=== PATIENT | female | born 1970 | race Caucasian/White ===

== ENCOUNTER 2016-05-20 07:47 | Day surgery (SDC) | payer BC ==
[~2016-05-20 07:47] MED LIST: ATROPINE SULFATE 0.4 MG/1 ML VIAL IVP PRN; BUPIVACAINE 0.25% W/ EPI - 10 ML VIAL ONE; LIDOCAINE HCL 2 % 10 ML JELLY URO-JECT TOPICAL ONE; LIDOCAINE W/ SODIUM BICARB 0.5 ML SYR ONE; Lactated Ringers 1,000 ML PRIMARY IV SCH; Lactated Ringers 2,000 ML PRIMARY IV ONE; NORMAL SALINE 10 ML SYRINGE FLUSH IVP PRN; ONDANSETRON 4 MG/2 ML VIAL IVP PRN; Ondansetron ODT Tab 8 MG TAB PO PRN; Opium-Belladonna 60-16.2mg 1 EACH SUPP.RECT RECTAL ONE; Prochlorperazine Edisylate Inj 10mg/2ml vial IVP PRN; SCOPOLAMINE HYDROBROMIDE 1.5 MG - 1 EACH PATCH TRANSDERM ONE; Sodium Chloride 0.9% 100 ML IV ONE; fentaNYL Inj 100 MCG/2 ML VIAL IVP PRN
[2016-05-20] MEDS ORDERED: Acetaminophen 1000mg Inj 100 ML IV ONE (07:59)
[2016-05-20] MEDS ORDERED: SCOPOLAMINE HYDROBROMIDE 1.5 MG - 1 EACH PATCH TRANSDERM ONE (07:59)
[2016-05-20 08:00] LABS: BILIRUBIN,URINE NEGATIVE (NEG); CLARITY,URINE CLEAR (CLEAR); GLUCOSE, URINE (UA) NEGATIVE (NEG); LEUKOCYTE ESTERASE ,URINE NEGATIVE (NEG); NITRATE,URINE NEGATIVE (NEG); OCCULT BLOOD,URINE Trace-intact (NEG); PH,URINE 5.5 (5.0-8.5); PROTEIN,URINE NEGATIVE (NEG); UROBILINOGEN,URINE 0.2 mg/dL (0.2)
[2016-05-20 08:03] LABS: URINE SAMPLE TYPE CLEAN CATCH URINE; WBC,URINE 0-1
[2016-05-20 08:04] LABS: BACTERIA,URINE FEW; SQUAMOUS EPITHELIAL CELL,UR MODERATE
[2016-05-20 08:25] LABS: HEMATOCRIT 37.9 % (37.0-47.0); HEMOGLOBIN 12.6 g/dL (12.0-16.0)
[2016-05-20] MEDS ORDERED: KETAMINE 100 MG/1 ML - 5 ML ONE (09:39)
[2016-05-20] MEDS ORDERED: SUFENTANIL 50 MCG/1 ML ONE (09:39)
[2016-05-20] MEDS ORDERED: MIDAZOLAM 5 MG/1 ML ONE (09:39)
[2016-05-20] MEDS ORDERED: LIDOCAINE MPF 2% - 5 ML (20 MG/1 ML) ONE ×2 (09:40→11:54)
[2016-05-20] MEDS ORDERED: Sodium Chloride 0.9% vial 10 ML ONE ×2 (09:40→09:46)
[2016-05-20] MEDS ORDERED: VECURONIUM BROMIDE 10 MG VIAL ONE (09:45)
[2016-05-20] MEDS ORDERED: Lactated Ringers 1,000 ML PRIMARY IV ONE (09:46)
[2016-05-20] MEDS ORDERED: GLYCOPYRROLATE 0.2 MG/1 ML VIAL ONE (11:05)
[2016-05-20] MEDS ORDERED: NEOSTIGMINE 1 MG/1 ML - 10 ML ONE (11:05)
[2016-05-20] MEDS ORDERED: DEXAMETHASONE PF 10 MG/1 ML VIAL ONE (11:06)
[2016-05-20] MEDS ORDERED: Opium-Belladonna 60-16.2mg 1 EACH SUPP.RECT RECTAL ONE (11:30)
[2016-05-20] MEDS ORDERED: NORMAL SALINE 10 ML SYRINGE FLUSH IVP PRN (11:42)
[2016-05-20] MEDS ORDERED: Ondansetron ODT Tab 8 MG TAB PO PRN (11:42)
[2016-05-20] MEDS ORDERED: KETOROLAC 30 MG/1 ML VIAL IVP PRN (11:42)
[2016-05-20] MEDS ORDERED: IBUPROFEN 800 MG TABLET PO PRN (11:42)
[2016-05-20] MEDS ORDERED: oxyCODONE-ACETAMINOPHEN 5-325 TAB PO PRN (11:42)
--- NOTE | 2016-05-20 11:46 | OB.OP.NOTE ---
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 Normal Ovaries. Tubes s/p BTL with clips. Both ureters ejected urine at cysto. No visible evidence of bowel , bladder or ureter injury. Indications for the Procedure: MMR/Dysmenorrhea Description of Procedure: See dictated operative report. Plan: Routine post op care and discharge to home.
[2016-05-20] MEDS ORDERED: KETOROLAC 30 MG/1 ML VIAL ONE (11:47)
[2016-05-20] MEDS: HYDROmorphone 2 MG/1 ML IVP PRN ×2 (12:15→12:25)
[2016-05-20 12:19] VITALS: RESP 14
[2016-05-20] MEDS ORDERED: HYDROmorphone 2 MG/1 ML ONE (12:19)
[2016-05-20] MEDS ORDERED: oxyCODONE IR Tab 5 MG TAB PO ONE (12:51)
[2016-05-20] MEDS ORDERED: BUTORPHANOL TARTRATE 2 MG/1 ML VIAL ONE (12:58)
[2016-05-20] MEDS ORDERED: oxyCODONE IR Tab 5 MG TAB PO PRN (13:09)
[2016-05-20] MEDS ORDERED: BUTORPHANOL TARTRATE 2 MG/1 ML VIAL IVP ONE (13:17)
[2016-05-20] MEDS ORDERED: diphenhydrAMINE 50 MG/1 ML VIAL IVP ONE (13:49)
[2016-05-20] MEDS ORDERED: diphenhydrAMINE 50 MG/1 ML VIAL ONE (13:50)
[2016-05-20 15:38] VITALS: TEMP 99.1
[2016-05-20] MEDS ORDERED: DOCUSATE 100 MG CAPSULE PO SCH (21:00)
== END 2016-05-20 16:50 | disposition home or self-care (01) ==
LOC: SDSC 07:47
PROVIDERS: ATTEND Obstetrics & Gynecology
DX: N92.0 Excessive and frequent menstruation with regular cycle (principal); N94.6 Dysmenorrhea, unspecified; F32.81 Premenstrual dysphoric disorder
CPT/HCPCS: 52000; 58552; 81001; 84703; 85014; 85018; A4216; J0131; J0595; J0694; J1200; J1885; J2704; J1100; J1170; J2001; J2250; J2710; J3490; J7050; J7120

== ENCOUNTER → 2016-06-05 | Outpatient (CLI) | payer BC ==
[2016-06-05 15:28] LABS: BILIRUBIN,URINE NEGATIVE (NEG); CLARITY,URINE CLEAR (CLEAR); GLUCOSE, URINE (UA) NEGATIVE (NEG); LEUKOCYTE ESTERASE ,URINE NEGATIVE (NEG); NITRATE,URINE NEGATIVE (NEG); OCCULT BLOOD,URINE NEGATIVE (NEG); PH,URINE 5.5 (5.0-8.5); PROTEIN,URINE NEGATIVE (NEG); UROBILINOGEN,URINE 0.2 mg/dL (0.2)
[2016-06-05 15:33] LABS: URINE SAMPLE TYPE VOIDED SPECIMEN; WBC,URINE 0-2
== END ==
LOC: MOB LAB 14:43
PROVIDERS: ATTEND Obstetrics & Gynecology
DX: R10.31 Right lower quadrant pain (principal); Z90.710 Acquired absence of both cervix and uterus; Z98.890 Other specified postprocedural states
CPT/HCPCS: 81001